=== PATIENT | female | born 1990 | race Hispanic/Latino ===

== ENCOUNTER 2016-10-03 14:38 | Emergency (ER) | payer OTHER ==
[~2016-10-03] VITALS: Ht 165.1 cm; Wt 86.2 kg
[~2016-10-03 14:38] MED LIST: MELO7.5T6 PO
[2016-10-03] MEDS ORDERED: NEXP1IMP SC (14:44)
[2016-10-03] MEDS ORDERED: NAPROXEN 250 MG TAB PO ONE (15:00)
--- NOTE | 2016-10-03 16:06 | REP ---
Right great toe four views: There is a small calcification at the base of the distal phalanges laterally, avulsion versus accessory ossicle. Correlate with clinical point tenderness. There is no other evidence of fracture. No dislocation. Mineralization joint spaces are otherwise unremarkable. Signed by Chente Ralph MD 10/03/2016 03:57 P
[2016-10-03] MEDS ORDERED: NAPR500T PO (16:14)
[2016-10-03 16:25] VITALS: BP 118/67
== END 2016-10-03 16:30 | disposition home or self-care (01) ==
LOC: M ED 16:12
DX: S90.111A Contusion of right great toe without damage to nail, initial encounter (principal); W22.8XXA Striking against or struck by other objects, initial encounter; Y92.099 Unspecified place in other non-institutional residence as the place of occurrence of the external cause; Y93.89 Activity, other specified; Y99.9 Unspecified external cause status

== ENCOUNTER → 2017-06-28 | Outpatient (CLI) | payer OTHER | LOC: M EKG 11:14 | DX: O24.112 Pre-existing type 2 diabetes mellitus, in pregnancy, second trimester (principal); E11.9 Type 2 diabetes mellitus without complications; Z3A.00 Weeks of gestation of pregnancy not specified | CPT/HCPCS: 93005 ==

== ENCOUNTER → 2017-08-03 | Outpatient (CLI) | payer OTHER ==
[~2017-08-03] MED LIST changes: +LIDOCAINE 1% MDV 20ML VIAL As Ordered; -MELO7.5T6 PO
== END ==
LOC: M RADPRO 12:11
DX: D24.1 Benign neoplasm of right breast (principal)
CPT/HCPCS: 76642

== ENCOUNTER 2017-08-06 07:28 | Outpatient (CLI) | payer OTHER ==
[2017-08-06 08:34] LABS: APPEARANCE, URINE HAZY (CLEAR); BACTERIA, URINE AUTO NEGATIVE (NEGATIVE); BILIRUBIN, URINE AUTO NEGATIVE (NEGATIVE); BLOOD, URINE BLOOD NEGATIVE (NEGATIVE); COLOR, URINE YELLOW (YELLOW); GLUCOSE, URINE (UA) AUTO NEGATIVE (NEGATIVE); KETONE, URINE AUTO NEGATIVE (NEGATIVE); LEUKOCYTE ESTERASE, URINE AUTO 1+ (NEGATIVE); MUCUS, URINE SMALL (NEGATIVE); NITRITE, URINE AUTO NEGATIVE (NEGATIVE); PROTEIN, URINE AUTO NEGATIVE (NEGATIVE); RBC, URINE AUTO 1 /HPF (0-3); SPECIFIC GRAVITY URINE AUTO 1.013 (1.002-1.035); SQUAMOUS EPITHELIAL CELL UR AU 6 /HPF (0-6); UROBILINOGEN, URINE AUTO 0.2 mg/dL (0.0-2.0); WBC, URINE AUTO 5 /HPF (0-3)
== END 2017-08-06 11:15 | disposition home or self-care (01) ==
LOC: M LDO 07:28
DX: O99.89 Other specified diseases and conditions complicating pregnancy, childbirth and the puerperium (principal); Z3A.28 28 weeks gestation of pregnancy; O23.43 Unspecified infection of urinary tract in pregnancy, third trimester; R10.9 Unspecified abdominal pain; Z88.0 Allergy status to penicillin
CPT/HCPCS: 59025

== ENCOUNTER 2017-09-03 10:57 | Outpatient (CLI) | payer OTHER | END 2017-09-03 11:45 | disposition home or self-care (01) | LOC: M LDO 10:57 | DX: O26.853 Spotting complicating pregnancy, third trimester (principal); Z3A.32 32 weeks gestation of pregnancy; Z88.0 Allergy status to penicillin | CPT/HCPCS: 59025 ==

== ENCOUNTER 2017-10-06 03:16 | Outpatient (CLI) | payer OTHER | END 2017-10-06 07:40 | disposition home or self-care (01) | LOC: M LDO 03:16 | DX: O47.1 False labor at or after 37 completed weeks of gestation (principal); Z3A.37 37 weeks gestation of pregnancy; O24.419 Gestational diabetes mellitus in pregnancy, unspecified control | CPT/HCPCS: 76819 ==

== ENCOUNTER 2017-10-16 15:45 | Outpatient (CLI) | payer OTHER | END 2017-10-16 17:00 | disposition home or self-care (01) | LOC: M LDO 15:45 | DX: O47.1 False labor at or after 37 completed weeks of gestation (principal); Z3A.39 39 weeks gestation of pregnancy; O24.419 Gestational diabetes mellitus in pregnancy, unspecified control | CPT/HCPCS: 59025 ==

== ENCOUNTER 2017-10-17 13:12 | Inpatient (IN) | payer OTHER ==
[2017-10-17] MEDS ORDERED: OXYTOCIN 30 UNITS IN 0.9% NaCl 500ML IV BAG (J2590) As Ordered (15:39)
[2017-10-17 16:02] LABS: HEMATOCRIT 36.9 % (36.0-47.0); HEMOGLOBIN 12.4 g/dl (12.0-15.5); MEAN CORPUSCULAR HEMOGLOBIN 30.5 pg (27.0-33.0); MEAN CORPUSCULAR HGB CONC 33.6 g/dl (32.0-36.5); MEAN CORPUSCULAR VOLUME 90.7 fl (80.0-96.0); PLATELET COUNT, AUTOMATED 207 10^3/uL (150-450); RED BLOOD COUNT 4.07 10^6/uL (4.00-5.40); RED CELL DISTRIBUTION WIDTH 13.6 % (11.5-14.5); WHITE BLOOD COUNT 10.4 10^3/uL (4.0-10.0)
[2017-10-17 16:07] LABS: ANION GAP 6 MEQ/L (8-16); BLOOD UREA NITROGEN 7 MG/DL (7-18); CALCIUM LEVEL 8.8 MG/DL (8.5-10.1); CARBON DIOXIDE LEVEL 25 MEQ/L (21-32); CHLORIDE LEVEL 109 MEQ/L (98-107); CREATININE FOR GFR 0.69 MG/DL (0.55-1.30); GLOMERULAR FILTRATION RATE > 60.0 (>60); GLUCOSE, FASTING 61 MG/DL (70-100); POTASSIUM SERUM 4.3 MEQ/L (3.5-5.1); SODIUM LEVEL 140 MEQ/L (136-145)
[2017-10-17] MEDS: OXYTOCIN DRIP 30 UNITS in APPROPRIATE DILUENT 1 EA IV (16:20)
[2017-10-17] MEDS: LR 1,000 ML IV ×2 (16:20→23:21)
[2017-10-17] MEDS ORDERED: FENTANYL 2MCG/ML ROPIVACAINE 0.2% IN 0.9% NACL 200ML IVBAG As Ordered (23:53)
[2017-10-18] MEDS ORDERED: LACTATED RINGER'S 1000 ML IV (00:45)
[2017-10-18] MEDS ORDERED: NALOXONE INJ 0.4 MG/1 ML VIAL (J2310) IV (00:45)
[2017-10-18] MEDS ORDERED: REFRIGERATOR IV KEYS XX (00:45)
[2017-10-18] MEDS ORDERED: FENTANYL/ROPIVACAINE/NACL BAG 200 ML EPIDURAL (00:45)
[2017-10-18] MEDS ORDERED: EPIDURAL COMMENT XX (00:45)
[2017-10-18] MEDS ORDERED: ONDANSETRON 4MG/2ML VIAL (J2405) IV (00:45)
[2017-10-18] MEDS ORDERED: diphenhydrAMINE INJ 50MG/ML VIAL (J1200) IV (00:45)
[2017-10-18] MEDS ORDERED: EPIDURAL/PCA KEYS XX (00:45)
[2017-10-18] MEDS: ePHEDrine SULFATE 25 MG/5 ML(5MG/ML) SYRINGE IV ×3 (00:53→01:03)
[2017-10-18] MEDS ORDERED: FAMOTIDINE 20 MG TAB As Ordered (01:08)
[2017-10-18] MEDS: FAMOTIDINE 20 MG TAB PO (01:17)
[2017-10-18] MEDS: LR 1,000 ML IV (05:10)
[2017-10-18] MEDS ORDERED: RHOGAM 300 MCG (1500 IU) INJ (J2790) IM (06:15)
[2017-10-18] MEDS ORDERED: METOCLOPRAMIDE INJ 10MG/2ML VIAL (J2765) IV (06:15)
[2017-10-18] MEDS ORDERED: DIBUCAINE 1% OINTMENT 30GM TOP (06:15)
[2017-10-18] MEDS ORDERED: MEASLES,MUMPS,RUBELLA VACCINE INJ (MMR-II) (90707) SC (06:15)
[2017-10-18] MEDS: OXYTOCIN DRIP 30 UNITS in APPROPRIATE DILUENT 1 EA IV (06:33)
[2017-10-18] MEDS: PRENATAL VITAMINS CHEWABLE TABLET PO (10:27)
[2017-10-18] MEDS: DOCUSATE SODIUM 100 MG CAP PO ×2 (10:27→20:39)
[2017-10-18] MEDS: IBUPROFEN 800 MG TAB PO ×2 (11:56→20:40)
[2017-10-18] MEDS: ACETAMINOPHEN TAB 650MG DOSE (2X325MG) PO (18:40)
[2017-10-19] MEDS: ACETAMINOPHEN TAB 650MG DOSE (2X325MG) PO (01:56)
[2017-10-19 05:36] LABS: HEMATOCRIT 31.5 % (36.0-47.0); HEMOGLOBIN 10.6 g/dl (12.0-15.5); MEAN CORPUSCULAR HEMOGLOBIN 30.9 pg (27.0-33.0); MEAN CORPUSCULAR HGB CONC 33.7 g/dl (32.0-36.5); MEAN CORPUSCULAR VOLUME 91.8 fl (80.0-96.0); PLATELET COUNT, AUTOMATED 155 10^3/uL (150-450); RED BLOOD COUNT 3.43 10^6/uL (4.00-5.40); RED CELL DISTRIBUTION WIDTH 13.7 % (11.5-14.5); WHITE BLOOD COUNT 12.9 10^3/uL (4.0-10.0)
[2017-10-19 06:14] LABS: ANION GAP 6 MEQ/L (8-16); BLOOD UREA NITROGEN 12 MG/DL (7-18); CALCIUM LEVEL 8.6 MG/DL (8.5-10.1); CARBON DIOXIDE LEVEL 26 MEQ/L (21-32); CHLORIDE LEVEL 109 MEQ/L (98-107); CREATININE FOR GFR 0.74 MG/DL (0.55-1.30); GLOMERULAR FILTRATION RATE > 60.0 (>60); GLUCOSE, FASTING 97 MG/DL (70-100); POTASSIUM SERUM 3.8 MEQ/L (3.5-5.1); SODIUM LEVEL 141 MEQ/L (136-145)
[2017-10-19] MEDS: PRENATAL VITAMINS CHEWABLE TABLET PO (08:04)
[2017-10-19] MEDS: DOCUSATE SODIUM 100 MG CAP PO (08:04)
[2017-10-19] MEDS: IBUPROFEN 800 MG TAB PO (08:05)
== END 2017-10-19 14:00 | disposition home or self-care (01) | DRG 774 ==
LOC: M LDI 13:12 → M OBS 10-18 10:03
PROC: 3E033VJ Introduction of Other Hormone into Peripheral Vein, Percutaneous Approach (ICD-10-PCS; 2017-10-17)
PROC: 10E0XZZ Delivery of Products of Conception, External Approach (ICD-10-PCS; principal; 2017-10-18)
PROC: 10907ZC Drainage of Amniotic Fluid, Therapeutic from Products of Conception, Via Natural or Artificial Opening (ICD-10-PCS; 2017-10-18)
PROC: 0HQ9XZZ Repair Perineum Skin, External Approach (ICD-10-PCS; 2017-10-18)
DX: O24.12 Pre-existing type 2 diabetes mellitus, in childbirth (principal); Z3A.39 39 weeks gestation of pregnancy; Z37.0 Single live birth; K21.9 Gastro-esophageal reflux disease without esophagitis; Z88.0 Allergy status to penicillin; O70.0 First degree perineal laceration during delivery; O99.62 Diseases of the digestive system complicating childbirth; E11.9 Type 2 diabetes mellitus without complications